=== PATIENT | male | born 1960 | race Caucasian/White ===

== ENCOUNTER 2016-10-06 11:37 | Emergency (ER) | payer OTHER ==
[~2016-10-06] VITALS: Ht 162.6 cm; Wt 67.0 kg
[2016-10-06 11:42] VITALS: BP 131/83; PULSE 79; RESP 16; TEMP 98.4; O2SAT 99
--- NOTE | 2016-10-06 11:59 | PD ---
HPI Chief Complaint: Headache Time Seen by Provider: 11:49 Travel History International Travel<30 days: No Contact w/Intl Traveler<30days: No Traveled to known affect area: No History of Present Illness HPI This patient reports that he woke up this morning feeling fine. At 8:30 AM he developed a 20 minute spell of blurry vision. He also developed a headache at that time. At this time his headache is significantly improved. There was no thunderclap onset. No head injury or blood thinners. He did not have any muscle weakness or sensory loss or speech slurring or any other situation. It was both eyes together. No diplopia. But blurring of vision. Patient is no history of stroke PFSH Past Medical History Hx Anticoagulant Therapy: No Cardiovascular Problems: Yes (CHOL) Diabetes: No Social History Alcohol Use: No Tobacco Use: No Substance Use: No Allergies-Medications (Allergen,Severity, Reaction): Coded Allergies: No Known Allergies (Unverified , 10/06/16) Review of Systems General / Constitutional: No: Fever Eyes: Positive: Blurred Vision, No: Visual changes HENT: Positive: Headaches Cardiovascular: No: Chest Pain or Discomfort Respiratory: No: Shortness of Breath Gastrointestinal: No: Abdominal Pain Genitourinary: No: Dysuria Musculoskeletal: No: Pain Skin: No Rash Neurologic: Positive: Headache, No: Weakness Psychiatric: No: Depression Endocrine: No: Polydipsia Hematologic/Lymphatic: No: Easy Bruising Physical Exam Narrative GENERAL: Well-nourished, well-developed patient in no apparent distress. SKIN: Focused skin assessment reveals no rash and nodules. Skin is Warm and dry. HEAD: Atraumatic. Normocephalic. EYES: Pupils equal and round. No scleral icterus. No injection or drainage. ENT: No nasal bleeding or discharge. Mucous membranes pink and moist. NECK: Trachea midline. No JVD. CARDIOVASCULAR: Regular rate and rhythm. No murmur appreciated. RESPIRATORY: No accessory muscle use. Clear to auscultation. Breath sounds equal bilaterally. GASTROINTESTINAL: Abdomen soft, non-tender, nondistended. Hepatic and splenic margins not palpable. MUSCULOSKELETAL: No obvious deformities. No clubbing. No cyanosis. No edema. NEUROLOGICAL: Awake and alert. No obvious cranial nerve deficits. Motor grossly within normal limits. Normal speech. PSYCHIATRIC: Appropriate mood and affect; insight and judgment normal. Data Data Last Documented VS Vital Signs Date Time Temp Pulse Resp B/P Pulse Ox O2 Delivery O2 Flow Rate FiO2 10/06/16 12:51 77 126/82 100 10/06/16 11:[address] Brain W/O Iv Contrast(Rout) (10/06/16 ) Blood Glucose (10/06/16 11:56) Master Control Supervisor / Telemetry [email or web address] (10/06/16 11:56) MDM Medical Decision Making Medical Screen Exam Complete: Yes Emergency Medical Condition: Yes Medical Record Reviewed: Yes Differential Diagnosis Retinal detachment, vitreous hemorrhage, TIA, CVA Narrative Course I have reviewed the patient's electronic medical record. Patient never been here before Patient's vital signs are normal His exam is normal All of his symptoms but mild headache have resolved Accu-Chek is 131 Extended cardiac monitoring reveals sinus rhythm without ectopy Brain CT is normal This patient coincidentally has a family physician appointment at 2 PM today which is one hour from now Is stable for follow-up with that doctor to discuss further neurologic or ophthalmologic workups Diagnosis Primary Impression: Blurry vision, bilateral Additional Impression: Headache Qualified Code: R51 - Acute nonintractable headache, unspecified headache type Additional Instructions: Follow-up with your doctor in one hour as scheduled Med/Other Pt SpecificInfo: Other Disposition: 01 DISCHARGE HOME Condition: Stable Thad Cobb MD October 06, 2016 11:59
--- NOTE | 2016-10-06 12:18 | RADHPO ---
EXAM DATE/TIME: 10/06/2016 12:01 [facility] COMPARISON: No previous studies available for comparison. INDICATIONS : Blurred vision and dizziness. RADIATION DOSE: 66.24 CTDIvol (mGy) MEDICAL HISTORY : Cardiovascular disease. Hypercholesterolemia. SURGICAL HISTORY : None. ENCOUNTER: Initial ACUITY: 1 day PAIN SCALE: 0/10 LOCATION: cranial TECHNIQUE: Multiple contiguous axial images were obtained of the head. Using automated exposure control and adj ustment of the mA and/or kV according to patient size, radiation dose was kept as low as reasonably a chievable to obtain optimal diagnostic quality images. FINDINGS: CEREBRUM: The ventricles are normal for age. No evidence of midline shift, mass lesion, hemorrhage or acute in farction. No extra-axial fluid collections are seen. POSTERIOR FOSSA: The cerebellum and brainstem are intact. The 4th ventricle is midline. The cerebellopontine angle i s unremarkable. EXTRACRANIAL: The visualized portion of the orbits is intact. SKULL: The calvaria is intact. No evidence of skull fracture. CONCLUSION: Normal examination. Víctor Diane Jr., MD on October 06, 2016 at 12:13 Board Certified Radiologist. This report was verified electronically.
[2016-10-06 12:51] VITALS: BP 126/82; PULSE 77; O2SAT 100
== END 2016-10-06 13:12 | disposition home or self-care (01) ==
LOC: PHED 11:37
DX: H53.8 Other visual disturbances (principal); R51 Headache
CPT/HCPCS: 70450